=== PATIENT | female | born 2000 | race Caucasian/White ===

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

== ENCOUNTER 2018-04-16 21:13 | Inpatient (IN) | payer MEDICAID, OTHER ==
[2018-04-16] MEDS ORDERED: SODIUM CHLORIDE 0.9% 1,000 ML IV ONE ×2 (21:37→22:29)
[2018-04-16] MEDS ORDERED: ACETAMINOPHEN 325 MG TABLET PO STA (21:37)
[2018-04-16 21:56] LABS: BILIRUBIN,URINE NEGATIVE (NEGATIVE); GLUCOSE, URINE (UA) NEGATIVE (NEGATIVE); KETONES,URINE (UA) NEGATIVE (NEGATIVE); LEUKOCYTE ESTERASE, URINE MODERATE (NEGATIVE); NITRITE,URINE POSITIVE (NEGATIVE); OCCULT BLOOD,URINE MODERATE (NEGATIVE); PROTEIN,URINE 30 mg/dL (NEGATIVE); UROBILINOGEN,URINE 0.2 (NORMAL) E.U./dL (NORMAL)
[2018-04-16 21:58] LABS: BASOPHILS % (AUTO) 0.3 %; EOSINOPHILS % (AUTO) 0.3 %; HGB - HEMOGLOBIN 9.7 g/dL (12.0-16.0); LYMPHOCYTES % (AUTO) 9.6 %; MEAN CORPUSCULAR HEMOGLOBIN 23.9 pg (27.0-31.0); MEAN CORPUSCULAR HGB CONC 33.5 g/dL (32.0-36.0); MEAN CORPUSCULAR VOLUME 71.3 fL (81.0-99.0); MEAN PLATELET VOLUME 7.9 fL (7.9-10.8); MONOCYTES % (AUTO) 12.8 %; PLT - PLATELET COUNT 277 10^3/uL (130-450); RED BLOOD COUNT 4.07 10^6/uL (4.20-5.40); RED CELL DISTRIBUTION WIDTH 14.3 % (12.0-15.0); WHITE BLOOD COUNT 14.7 x10^3/uL (4.8-10.8)
[2018-04-16 21:59] LABS: ABNORMAL LYMPHS % (MANUAL) 0 %
[2018-04-16 22:00] LABS: CLARITY,URINE CLOUDY (CLEAR)
[2018-04-16 22:08] LABS: ALBUMIN 2.9 g/dL (3.2-5.5); ALBUMIN/GLOBULIN RATIO 0.7 (1.0-2.2); BILIRUBIN,TOTAL 0.5 mg/dL (0.2-1.0); CALCIUM 8.9 mg/dL (8.5-10.3); CREATININE 0.5 mg/dL (0.4-1.0); TOTAL PROTEIN 7.1 g/dL (6.7-8.2)
[2018-04-16 22:10] LABS: BACTERIA,URINE Moderate /HPF (None Seen); SQUAMOUS EPITHELIAL CELL,UR FEW Squamous (<= Few)
[2018-04-16 22:28] LABS: BAND NEUTROPHILS % (MANUAL) 34 %; LYMPHOCYTES # (MANUAL) 1.8 10^3/uL (1.5-3.5); LYMPHOCYTES % (MANUAL) 12 %; MONOCYTES # (MANUAL) 1.6 10^3/uL (0.0-1.0); NEUTROPHILS # (MANUAL) 11.3 10^3/uL (1.5-6.6); NEUTROPHILS % (MANUAL) 43 %
[2018-04-16 22:29] LABS: DIFFERENTIAL COMMENT MANUAL DIFFERENTIAL; PLATELET ESTIMATE, MANUAL NORMAL (130-450,000) (NORMAL); PLATELET MORPHOLOGY NORMAL APPEARANCE (NORMAL)
[2018-04-16] MEDS ORDERED: cefTRIAXone 1 GM in SODIUM CHLORIDE 0.9% MINIBAG 100 ML IV STA (22:37)
--- NOTE | 2018-04-16 22:38 | ED Physician Documentation ---
PD HPI FEMALE - Stated complaint Stated Complaint: CHILLS/26WK OB - Chief complaint Chief Complaint: Fever - History obtained from History obtained from: Patient, Family - History of Present Illness Timing - onset: How many weeks ago (1) Timing - details: Gradual onset, Still present Associated symptoms: Fever, Back pain, Dysuria. 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 patient states that she has had intermittent chills, and fevers. Patient states that she did have a urinary tract infection that was treated and her subsequent visits have been ok. patient followed up with her ob office and the tests had been fine. Patient reports that she has had some mild congestion but no other significant symptoms. Review of Systems Constitutional: reports: Fever, Chills. denies: Myalgias, Sweats Eyes: reports: Reviewed and negative Ears: denies: Ear pain Nose: reports: Rhinorrhea / runny nose, Congestion Throat: reports: Sore throat Cardiac: denies: Chest pain / pressure, Palpitations Respiratory: denies: Dyspnea GI: denies: Abdominal Pain, Nausea, Vomiting, Constipation, Diarrhea : denies: Dysuria, Frequency Musculoskeletal: reports: Back pain Neurologic: denies: Generalized weakness, Focal weakness, Numbness, Headache PD PAST MEDICAL HISTORY - Past Medical History Past Medical History: No - Past Surgical History Past Surgical History: No - Present Medications Home Medications: Ambulatory Orders Medication Instructions Recorded Confirmed Pnv95/Ferrous Fumarate/FA 1 tab PO DAILY 04/16/18 04/16/18 [ Vitamin Tablet] Pyridoxine HCl [Vitamin B-6] 1 tab PO DAILY 04/16/18 04/16/18 - Allergies Allergies/Adverse Reactions: Allergies Allergy/AdvReac Type Severity Reaction Status Date / Time No Known Drug Allergies Allergy Verified 04/16/18 21:29 - Social History Does the pt smoke?: Yes Smoking Status: Current every day smoker Does the pt drink ETOH?: No Does the pt have substance abuse?: No - Immunizations Immunizations are current?: Yes PD ED PE NORMAL - Vitals Vital signs reviewed: Yes (febrile, tachycardic) - General General: Alert and oriented X 3, Well developed/nourished - HEENT HEENT: Atraumatic - Neck Neck: Supple, no meningeal sign - Cardiac Cardiac: RRR, No murmur - Respiratory Respiratory: No respiratory distress - Female Female : Deferred - Derm Derm: Normal color - Extremities Extremities: No deformity - Neuro Neuro: Alert and oriented X 3, No motor deficit, Normal speech Eye Opening: Spontaneous Motor: Obeys Commands Verbal: Oriented GCS Score: 15 - Psych Psych: Normal mood PD ED PE EXPANDED - Cardiac Cardiac: Tachy Results - Vitals Vitals: Vital Signs - 24 hr 04/16/18 04/16/18 04/16/18 21:17 21:25 22:31 Temperature 36.8 C 38.9 C H 39.1 C H Heart Rate 120 H 119 H 111 H Respiratory 16 16 Rate Blood Pressure 132/71 H 113/66 O2 Saturation 99 98 99 04/16/18 23:36 Temperature 37.9 C H Heart Rate 120 H Respiratory 18 Rate Blood Pressure 111/67 O2 Saturation 100 Oxygen O2 Source Room air - Labs Labs: Laboratory Tests 04/16/18 04/16/18 04/16/18 21:39 21:48 21:48 WBC 14.7 H RBC 4.07 L Hgb 9.7 L Hct 29.0 L MCV 71.3 L MCH 23.9 L MCHC 33.5 RDW 14.3 Plt Count 277 MPV 7.9 Neut # (Auto) Not Reportable Lymph # (Auto) Not Reportable [place] # (Auto) Not Reportable Eos # (Auto) Not Reportable Baso # (Auto) Not Reportable Absolute Nucleated RBC Not Reportable Total Counted 100 Band Neuts % (Manual) 34 H Abnorm Lymph % (Manual) 0 Nucleated RBC % Not Reportable Neutrophils # (Manual) 11.3 H Lymphocytes # (Manual) 1.8 Monocytes # (Manual) 1.6 H Eosinophils # (Manual) 0.0 Basophils # (Manual) 0.0 Differential Comment MANUAL DIFFERENTIAL Platelet Estimate NORMAL (130-450,000) Platelet Morphology NORMAL APPEARANCE RBC Morph Micro Appear 1+ POIKILOCYTOSIS Sodium 131 L Potassium 3.5 Chloride 101 Carbon Dioxide 22 Anion Gap 8.0 BUN 7 Creatinine 0.5 Estimated GFR (MDRD) 159 Glucose 105 H Lactic Acid Calcium 8.9 Total Bilirubin 0.5 AST 19 ALT 24 Alkaline Phosphatase 67 Total Protein 7.1 Albumin 2.9 L Globulin 4.2 Albumin/Globulin Ratio 0.7 L Lipase 24 Urine Color YELLOW Urine Clarity CLOUDY Urine pH 6.0 Ur Specific [place] 1.010 Urine Protein 30 H Urine Glucose (UA) NEGATIVE Urine Ketones NEGATIVE Urine Occult Blood MODERATE H Urine Nitrite POSITIVE H Urine Bilirubin NEGATIVE Urine Urobilinogen 0.2 (NORMAL) Ur Leukocyte Esterase MODERATE H Urine RBC 6-10 H Urine WBC >25 H Ur Squamous Epith Cells FEW Squamous Urine Bacteria Moderate H Ur Microscopic Review INDICATED Urine Culture Comments INDICATED Influenza A (Rapid) Influenza B (Rapid) 04/16/18 04/16/18 21:48 21:58 WBC RBC Hgb Hct MCV MCH MCHC RDW Plt Count MPV Neut # (Auto) Lymph # (Auto) [place] # (Auto) Eos # (Auto) Baso # (Auto) Absolute Nucleated RBC Total Counted Band Neuts % (Manual) Abnorm Lymph % (Manual) Nucleated RBC % Neutrophils # (Manual) Lymphocytes # (Manual) Monocytes # (Manual) Eosinophils # (Manual) Basophils # (Manual) Differential Comment Platelet Estimate Platelet Morphology RBC Morph Micro Appear Sodium Potassium Chloride Carbon Dioxide Anion Gap BUN Creatinine Estimated GFR (MDRD) Glucose Lactic Acid 1.6 Calcium Total Bilirubin AST ALT Alkaline Phosphatase Total Protein Albumin Globulin Albumin/Globulin Ratio Lipase Urine Color Urine Clarity Urine pH Ur Specific [place] Urine Protein Urine Glucose (UA) Urine Ketones Urine Occult Blood Urine Nitrite Urine Bilirubin Urine Urobilinogen Ur Leukocyte Esterase Urine RBC Urine WBC Ur Squamous Epith Cells Urine Bacteria Ur Microscopic Review Urine Culture Comments Influenza A (Rapid) Negative Influenza B (Rapid) Negative PD MEDICAL DECISION MAKING - ED course Complexity details: reviewed old records, reviewed results, re-evaluated patient , considered differential, d/w patient, d/w data integrity consultant ED course: Patient was seen and examined at beside. IV access was gained and labs were drawn. patient was treated with ns bolus. cultures were drawn and fluid was collected. patient was febrile and treated with tylenol. patient was found to have a pyelonephritis and bandemia. Case was discussed with [facility] OB, Dr. day who agreed to rocephin and observation. bedside ultrasound was performed and patient was found to have a viable IUP with a fhr of 156. - Sepsis Event Vital Signs: Vital Signs - 24 hr 04/16/18 04/16/1804/16/18 21:17 21:25 22:31 Temperature 36.8 C 38.9 C H 39.1 C H Heart Rate 120 H 119 H 111 H Respiratory 16 16 Rate Blood Pressure 132/71 H 113/66 O2 Saturation 99 98 99 04/16/18 23:36 Temperature 37.9 C H Heart Rate 120 H Respiratory 18 Rate Blood Pressure 111/67 O2 Saturation 100 Oxygen O2 Source Room air Departure - Departure Disposition: ED Place in Observation Clinical Impression: Pyelonephritis affecting in third trimester Condition: Stable
[2018-04-16] MEDS ORDERED: LACTATED RINGERS 1,000 ML IV SCH (23:45)
[2018-04-16] MEDS ORDERED: HYDROcod/ACETAM 5/325 MG TABLET PO PRN (23:53)
[2018-04-16] MEDS ORDERED: ZOLPIDEM 5 MG TABLET PO PRN (23:54)
[2018-04-17] MEDS ORDERED: FERRIC GLUCONATE 125 MG in SODIUM CHLORIDE 0.9% 100ML 100 ML IV SCH (00:05)
--- NOTE | 2018-04-17 00:11 | HISTORY & PHYSICAL EXAMINATION ---
Admit History - Instructions Marshall/Slash: -Left hand click circles element as positive or present. -Right hand click slashes element as negative or not present. - Visit Reason Visit Reason: Other (Fevers and chills) - : 1 Parity: 0 Care: positive: Other ([facility]) Risk/History: positive: Other (UTI treated about a month ago) Smoking Status: Current every day smoker Meds/Allgy - Home Medications Home Medications: Ambulatory Orders Medication Instructions Recorded Confirmed Pnv95/Ferrous Fumarate/FA 1 tab PO DAILY 04/16/18 04/16/18 [ Vitamin Tablet] Pyridoxine HCl [Vitamin B-6] 1 tab PO DAILY 04/16/18 04/16/18 - Allergies Allergies/Adverse Reactions: Allergies Allergy/AdvReac Type Severity Reaction Status Date / Time No Known Drug Allergies Allergy Verified 04/16/18 21:29 Physical - Abdominal Exam Vital Signs: Temp Pulse Resp BP Pulse Ox 100.2 F H 120 H 18 111/67 100 04/16/18 23:36 04/16/18 23:36 04/16/18 23:36 04/16/18 23:36 04/16/18 23:36 Plan for Labor - Plan For Labor I expect patient to be DC'd or transferred within 96 hours.: Yes Assessment/Plan - Assessment/Plan Assessment: 17 yo with a 25w4d IUP based on patient reported EDC 07/26/2018 Failed outpatient cystitis, worrisome for pyelonephritis Iron deficiency anemia Will admit to observation for IV antibiotic therapy as well as for IV iron transfusion Discharge to home after 24 hours of antibiotics and resolution of fevers H&P Dictated: [id number]
[2018-04-17] MEDS: AMPICILLIN 2 GM in SODIUM CHLORIDE 0.9% MINIBAG 100 ML IV SCH ×4 (01:32→20:25)
[2018-04-17] MEDS: PRENATAL VITAMIN TABLET PO SCH ×2 (01:32→08:31)
[2018-04-17] MEDS ORDERED: SODIUM CHLORIDE FLUSH 0.9% 10 ML SYRINGE ONE ×3 (01:34→19:06)
--- NOTE | 2018-04-17 02:43 | HISTORY & PHYSICAL EXAMINATION ---
DATE OF SERVICE: 04/16/2018 Physician: Cathy Mejia DO FACOG IDENTIFICATION: A 17-year-old G1, P0 with an approximately 26-week intrauterine . EDC per patient is 07/26/2018. HISTORY OF PRESENT ILLNESS: I was called to the emergency department by Dr. iBjan Guerra to see the patient, who has presented for feeling fevers and chills. She is a patient of [facility] in [place] and seeing Dr. Callejas. She was working in [place] at [employer] and after her shift decided to come be evaluated. The patient states that she has had since 4 p.m. the abrupt onset of feeling cold and fevers and chills. She states the baby has been moving well. Denies any vaginal bleeding or loss of fluid. She also denies any contractions or back pain. The patient recalls that a month ago she was diagnosed with a urinary tract infection and given antibiotics for 7 days. More recently, about a week ago, she started having fevers and chills, and she continued to have her slight back pain, which is normal for the patient. In the emergency department, the patient was noted to have a T-max of 39.1 degrees centigrade and an elevated white count of 14,000. I was asked to evaluate the patient. The patient states that this , with the exception of her urinary tract infection, has been essentially unremarkable. We currently do not have records from [facility] at this time. PAST MEDICAL HISTORY: None. PAST SURGICAL HISTORY: None. ALLERGIES: NO KNOWN DRUG ALLERGIES. MEDICATIONS 1. vitamins. 2. B6. SOCIAL HISTORY: She denies any tobacco, alcohol or illicit drug use. She works , again, at [employer] in [place], [place]. Her also works at [employer] along with the patient. PAST OBSTETRICAL HISTORY: Primigravida with EDC of 07/26/2018 per patient report. PAST GYNECOLOGICAL HISTORY: She denies having had Pap smears, and she also denies having any sexually transmitted diseases. The patient recalls that she is O positive. FAMILY HISTORY: Noncontributory. REVIEW OF SYSTEMS: Negative unless otherwise stated. OBJECTIVE VITAL SIGNS: Current temperature is 100.2. However, her T-max at 2231 was 102.4. Pulse is 120, and blood pressure is 111/67. GENERAL: The patient is a well-developed, well-nourished female who is alert and oriented x3. The patient is very pleasant and easy to speak to. HEENT: Within normal limits. CARDIOVASCULAR: Rate is regular. No murmurs or rubs. PULMONARY: Lungs are clear to auscultation bilaterally. ABDOMEN: Gravid, nontender. MUSCULOSKELETAL: There is no CVAT and/or flank tenderness. LABORATORY DATA: Reveal a white count of 14.7 thousand, H and H of 9.7 and 29.0 , platelets 277. Sodium 131, potassium 3.5, BUN 7, creatinine 0.5, glucose 105. AST 19, ALT 24. Urinalysis significant for proteinuria of 30 mg/dL, moderate occult blood, positive nitrites, moderate leukocytes, 6-10 red blood cells per high-power field, and greater than 25 white blood cells per high- power field. There is moderate bacteria seen, and urine culture is indicated. Influenza A and B are both negative. ASSESSMENT 1. A 17-year-old G1, P0 with a 26-week intrauterine . 2. Failed outpatient cystitis treatment, worrisome for progression to pyelonephritis. PLAN 1. Will admit to observation and IV antibiotics. 2. Will request records from [facility]. 3. Start ampicillin and gentamicin for a minimum of 24 hours until she is afebrile with resolution of fevers and chills. 4. NSTs every shift. TD: 04/17/2018 00:16 SEVERO
[2018-04-17] MEDS: GENTAMICIN IV SCH (02:52)
[2018-04-17] MEDS: SODIUM CHLORIDE 0.9% IV SCH (02:52)
[2018-04-17] MEDS: ACETAMINOPHEN 500 MG TABLET PO PRN ×2 (05:54→17:27)
--- NOTE | 2018-04-17 12:30 | PROVIDER PROGRESS NOTE ---
Subjective - Prog Note Date Prog Note Date: 04/17/18 Prog Note Time: 12:27 - Subjective Pt reports feeling: Improved Subjective: Lizy in bed, about to eat lunch. Reynaldo sleeping in the visitor's bed beside her. Lizy reports decreased fevers and chills. Still achey back pain. Denies abdominal pain, vaginal bleeding or loss of fluid. Baby moving well. Objective - Vital Signs/Intake & Output Vital Signs: Vital Signs x48h Temp Pulse Resp BP Pulse Ox 04/17/18 07:43 98.1 F 107 H 14 108/58 L 95 04/17/18 07:09 100 F H 04/17/18 05:00 100.8 F H 105 H 20 119/65 100 Intake & Output: Intake & Output 04/14/18 04/15/18 04/16/18 04/17/18 23:59 23:59 23:59 23:59 Intake Total 2716.25 Output Total 1975 Balance 741.25 - Objective General Appearance: positive: No acute distress Eyes Bilateral: positive: Normal inspection Abdomen: positive: Non-tender (Gravid. No CVAT nor flank tenderness.) Neurologic/Psychiatric: positive: Oriented x3 - Lab Results Fish Bones: 04/16/18 21:48 04/16/18 21:48 ABX Reporting Has patient been on IV antibiotics over the past 48 hours?: No Assessment/Plan - Problem List (1) Cystitis during in second trimester, antepartum Impression: 17 yo with a 26+ week IUP. Failed outpatient cystitis. No signs of pyelonephritis. Improving fevers. Tmax and last temp 102.4 at 22:31 last PM. UA with E. coli. Will continue IV abx until at least 24 hours afebrile. Currently on ampicillin and gentamicin. Await results of sensitivities and will tailor as appropriate. S/p iron transfusion for iron deficiency anemia.
[2018-04-17] MEDS: SODIUM CHLORIDE FLUSH 0.9% 10 ML SYRINGE IVP SCH (19:31)
[2018-04-18] MEDS: ACETAMINOPHEN 500 MG TABLET PO PRN (01:28)
[2018-04-18] MEDS: SODIUM CHLORIDE 0.9% IV SCH (01:28)
[2018-04-18] MEDS: GENTAMICIN IV SCH (01:28)
[2018-04-18] MEDS: SODIUM CHLORIDE FLUSH 0.9% 10 ML SYRINGE IVP SCH ×3 (01:29→20:57)
[2018-04-18] MEDS: AMPICILLIN 2 GM in SODIUM CHLORIDE 0.9% MINIBAG 100 ML IV SCH ×5 (03:15→20:57)
[2018-04-18] MEDS: PRENATAL VITAMIN TABLET PO SCH (09:03)
[2018-04-18] MEDS: SODIUM CHLORIDE FLUSH 0.9% 10 ML SYRINGE IVP PRN ×2 (09:04→14:37)
--- NOTE | 2018-04-18 10:45 | PROVIDER PROGRESS NOTE ---
Subjective - Prog Note Date Prog Note Date: 04/18/18 Prog Note Time: 10:43 - Subjective Pt reports feeling: Improved (Pt vandana flank or uterus pain. notes good FM.) Objective - Vital Signs/Intake & Output Reviewed Vital Signs: Yes Vital Signs: Vital Signs x48h Temp Pulse Resp BP Pulse Ox 04/18/18 07:48 36.4 C L 78 18 100/51 L 98 04/18/18 03:23 37.1 C 91 17 100/50 L 97 Intake & Output: Intake & Output 04/15/18 04/16/18 04/17/18 04/18/18 23:59 23:59 23:59 23:59 Intake Total 4356.25 606.25 Output Total 3325 500 Balance 1031.25 106.25 - Objective General Appearance: positive: No acute distress, Alert Respiratory: positive: Chest non-tender, No respiratory distress, Breath sounds nml Cardiovascular: positive: Regular rate & rhythm, No murmur, No gallop Abdomen: positive: Non-tender, No organomegaly, Nml bowel sounds, Mass (uterus is nontender) Back: negative: CVA tenderness (R), CVA tenderness (L) Skin: positive: Color nml, No rash, Warm, Dry Extremities: positive: Non-tender Neurologic/Psychiatric: positive: Oriented x3 - Lab Results Fish Bones: 04/16/18 21:48 04/16/18 21:48 Assessment/Plan - Problem List (1) Pyelonephritis affecting in third trimester Impression: Pt grew out E choli in both urine and blood. Currently sen pending. Defervescing. Wrill redraw CBC and basic Chem.
[2018-04-18 11:47] LABS: BASOPHILS % (AUTO) 0.2 %; EOSINOPHILS # (AUTO) 0.1 10^3/uL (0.0-0.7); EOSINOPHILS % (AUTO) 0.6 %; HGB - HEMOGLOBIN 9.4 g/dL (12.0-16.0); LYMPHOCYTES # (AUTO) 1.5 10^3/uL (1.5-3.5); LYMPHOCYTES % (AUTO) 13.4 %; MEAN CORPUSCULAR HEMOGLOBIN 24.3 pg (27.0-31.0); MEAN CORPUSCULAR HGB CONC 33.7 g/dL (32.0-36.0); MEAN CORPUSCULAR VOLUME 72.1 fL (81.0-99.0); MEAN PLATELET VOLUME 7.8 fL (7.9-10.8); MONOCYTES # (AUTO) 1.7 10^3/uL (0.0-1.0); MONOCYTES % (AUTO) 14.9 %; NEUTROPHILS # (AUTO) 8.2 10^3/uL (1.5-6.6); NEUTROPHILS % (AUTO) 70.9 %; PLT - PLATELET COUNT 299 10^3/uL (130-450); RED BLOOD COUNT 3.89 10^6/uL (4.20-5.40); RED CELL DISTRIBUTION WIDTH 14.6 % (12.0-15.0); WHITE BLOOD COUNT 11.5 x10^3/uL (4.8-10.8)
[2018-04-18 12:00] LABS: CALCIUM 8.9 mg/dL (8.5-10.3); CREATININE 0.6 mg/dL (0.4-1.0)
[2018-04-19] MEDS: AMPICILLIN 2 GM in SODIUM CHLORIDE 0.9% MINIBAG 100 ML IV SCH ×2 (02:58→08:35)
[2018-04-19] MEDS: SODIUM CHLORIDE FLUSH 0.9% 10 ML SYRINGE IVP SCH (02:58)
[2018-04-19] MEDS: ACETAMINOPHEN 500 MG TABLET PO PRN (04:31)
[2018-04-19] MEDS: PRENATAL VITAMIN TABLET PO SCH (08:35)
--- NOTE | 2018-04-19 12:07 | PROVIDER PROGRESS NOTE ---
Subjective - Prog Note Date Prog Note Date: 04/19/18 Prog Note Time: 12:05 - Subjective Pt reports feeling: Improved Subjective: Patient in bed, watching TV. Reynaldo at bedside. States pain in back in resolved. Feeling much better. No VB nor LOF. Good FM. No contractions. Desires to go home. Objective - Vital Signs/Intake & Output Reviewed Vital Signs: Yes Vital Signs: Vital Signs x48h Temp Pulse Resp BP Pulse Ox 04/19/18 08:35 97.3 F L 73 16 103/58 L 98 Intake & Output: Intake & Output 04/16/18 04/17/18 04/18/18 04/19/18 23:59 23:59 23:59 23:59 Intake Total 850 400 Output Total 750 600 Balance 100 -200 - Objective General Appearance: positive: No acute distress Eyes Bilateral: positive: Normal inspection Abdomen: positive: Non-tender (Gravid) Back: positive: Nml inspection (No flank nor CVAT) Skin: positive: Color nml Neurologic/Psychiatric: positive: Oriented x3, Mood/affect nml - Lab Results Fish Bones: 04/18/18 11:35 04/18/18 11:35 Assessment/Plan - Problem List (1) Cystitis during in second trimester, antepartum Impression: 17 yo witha 26w0d IUP. EDC 07/26/2018, CW 14 wk U/S. LMP 10/19/2017. UA showing E. coli, sensitive to all antibiotics. On ampicillin and gentamicin. NST today reactive without decels. Good accels and LTV. Baseline 110's. No contractions on toco. Reassuring status. (2) Sepsis due to Escherichia coli Impression: Improved sepsis. E. coli sensitive to all antibiotics. Patient afebrile > 24 hours and clinically much improved. Will discharge to home with Rx augmentin. Follow up with primary OB at [facility]. Call if fevers, chills, abdominal pain, decreased FM or contractions. Discharge summary: [id number] Discharge Plan Disposition: 01 Home, Self Care Condition: Good Diet: Regular Activity Restrictions: Activity as Tolerated Shower Restrictions: No Driving Restrictions: No Weight Bearing: Full Weight Additional Instructions or Follow Up instructions: Rx for augmentin Follow up with Dr. Johnson at [facility] Call for fevers, chills, abdominal pain or decreased movement. No Smoking: If you smoke, Please STOP! Call for help.
[2018-04-19 13:40] VITALS: BP 119/60
--- NOTE | 2018-04-20 05:10 | DISCHARGE SUMMARY ---
Physician: Cathy Mejia DO FACOG DATE OF ADMISSION: 04/16/2018 DATE OF DISCHARGE: 04/19/2018 DIAGNOSES ON ADMISSION 1. A 17-year-old G1, P0 with a 25 and 3/7-week intrauterine . 2. Failed outpatient treatment of cystitis. 3. Iron deficiency anemia DIAGNOSES ON DISCHARGE 1. A 17-year-old G1, P0 with a 26 and 0/7-week intrauterine . 2. Improved cystitis secondary to Escherichia coli. 3. Clinically resolved sepsis secondary to Escherichia coli. 4. Iron deficiency anemia, S/p iron transfusion 04/17/2018 BRIEF HISTORY: Patient is a patient of [facility] in [place], [place]. She presented at [facility] Emergency Department with complaints of fevers and chills. Both patient and her , Reynaldo, work in [employer]formerly [employer]) and presented here after their shift. On examination, patient was gravid with a nontender abdomen. There was no costovertebral angle tenderness nor flank tenderness. Her temperature was elevated to a T-max of 102.4 and her urinalysis was indicative of a cystitis. Patient recalled that she was treated in the recent past for urinary tract infection. heart tones were reassuring and category 1. Patient was admitted to the hospital for presumed failed outpatient treatment of her cystitis. She had no clinical indication of having pyelonephritis at this time. Urinalysis returned as Escherichia coli, which was sensitive to all the antibiotics on the panel. Interestingly enough, patient's blood cultures came back positive as well and similar to the urinalysis was positive for Escherichia coli and sensitive to all antibiotics on the panel. Patient was given 48 hours of IV ampicillin and gentamicin. Both were sensitive to Escherichia coli. Clinically, patient has defervesced and is having improved back pain. She still continues not to have any CVAT or flank tenderness. The baby has been very reassuring, currently today baseline 110s with a reactive nonstress test. There are no decels and no contractions. Patient was noted to have a decreased H and H of 9.7 and 29.8. Her MCV was decreased indicative of iron deficiency anemia. She did receive an iron transfusion during her hospitalization. Patient will be discharged home today and given a prescription for Augmentin to continue for the next week in order to assure that her infection has resolved. 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 She is to call should she have any worsening fevers, chills, abdominal pain, vaginal bleeding, or decreased movement. I have finally been able to receive the [facility]'s records. They show that patient was a late transfer of care to [place] at 21 weeks' gestation. She established care at [facility] at 25 weeks 1 day on 04/13/2018. LMP as stated was 10/19/2017 and the EDC is 07/26/2018. [facility] records are very hard to interpret, but it appears that there is a 14-week ultrasound that was consistent with dates. Her pharmacy of choice is [facility] in [place], [place]. ALLERGIES: NO KNOWN DRUG ALLERGIES. SOCIAL HISTORY: She was a former smoker and is taking Forte and B6. She is a G1, P0. PAST MEDICAL HISTORY: None. VITAL SIGNS: Weight is 151 pounds. Height is 62 inches. BMI is 27.7. Blood pressure 100/58. DIAGNOSTIC DATA: An 04/13/2018 urinalysis has grown out a culture of Escherichia coli, which is sensitive to all the antibiotics on the panel with the exception of cefazolin, which was not reported. One-hour GTT was 144. RPR nonreactive. Her is Reynaldo Lipscomb. HIV is nonreactive. A 03/16/2018 labs show white count of 8.0. Antibody screen is negative. Hepatitis B surface antigen is nonreactive. She is O positive. Hemoglobin is 11.4. RPR is nonreactive. Rubella is immune at 2.52. Platelets 273. Urine culture collected on 03/16/2018 shows E. coli, again sensitive to all antibiotics in this panel, but cefazolin was not reported. Quad screen was negative for open neural tube defects, Down syndrome and trisomy 18. A [place] ultrasound by Dr. Peter on 01/25/2018 shows dating confirmed by prior ultrasound. Corrected EDC is 07/26/2018. Handwritten notation shows a normal ultrasound at 14 weeks, posterior placenta, 4 extremities, 4 chest view. GC/CT are both negative. cc: Torey Callejas MD TD: 04/19/2018 12:40 [facility]
== END 2018-04-19 14:47 | disposition home or self-care (01) | DRG 781 ==
LOC: ED 21:13 → ICU 23:51 → MS2 04-17 15:44 → OBSVTOIN 04-18 17:14
PROVIDERS: ADMIT Obstetrics & Gynecology; ATTEND Obstetrics & Gynecology
DX: O98.812 Other maternal infectious and parasitic diseases complicating pregnancy, second trimester (principal); A41.51 Sepsis due to Escherichia coli [E. coli]; N10 Acute pyelonephritis; O99.012 Anemia complicating pregnancy, second trimester; O99.332 Smoking (tobacco) complicating pregnancy, second trimester; Z3A.26 26 weeks gestation of pregnancy
CPT/HCPCS: 36415; 80048; 80053; 81001; 81003; 83605; 83690; 85025; 87040; 87077; 87086; 87181; 87275; 87276; 96361; 96365; 96366; 96367; 99284